=== PATIENT | female | born 1995 | race African-American/Black ===

== ENCOUNTER 2017-07-14 15:58 | Emergency (ER) | payer SELFPAY ==
[2017-07-14 16:23] VITALS: BP 138/77; PULSE 81; TEMP 98.4; BMI 29.2
--- NOTE | 2017-07-14 16:26 | PDOC ---
History of Present Illness - General Chief Complaint: Urinary Problem Stated Complaint: POSSIBLE UTI Time Seen by Provider: 07/14/17 16:24 History Source: Patient Exam Limitations: No Limitations - History of Present Illness Travel History: No Initial Comments: 07/14/17 16:48 Patient states has had pain and burning with her urine for 3 days. Has suffered from UTIs in the past but not for the past few years. Denies fever, denies nausea vomiting or diarrhea. Denies any bleeding from void Timing/Duration: reports: getting worse Quality: reports: mild, fullness Pain Radiation: reports: no radiation Activities at Onset: reports: none Past History - Travel Traveled outside of the country in the last 30 days: No Close contact w/someone who was outside of country & ill: No - Past Medical History Allergies/Adverse Reactions: Allergies Allergy/AdvReac Type Severity Reaction Status Date / Time No Known Allergies Allergy Verified 07/14/17 16:23 Home Medications: Ambulatory Orders Sulfamethoxazole/Trimethoprim [Bactrim *Ds*] 1 each PO BID #14 tablet 07/14/17 COPD: No - Suicide/Smoking/Psychosocial Hx Smoking History: Never smoked Review of Systems - Review of Systems Able to Perform ROS?: Yes Is the patient limited [place] proficient: Yes Constitutional: Yes: Symptoms Reported, See HPI, Malaise. No: Chills, Fever HEENTM: Yes: See HPI. No: Symptoms Reported Respiratory: Yes: See HPI. No: Symptoms reported, Cough ABD/GI: Yes: See HPI. No: Symptoms Reported, Nausea : Yes: Symptoms Reported, See HPI, Burning, Frequency, Urgency. No: Hematuria All Other Systems: Reviewed and Negative *Physical Exam - Vital Signs Last Vital Signs Temp Pulse Resp BP Pulse Ox 98.4 F 81 20 138/77 99 07/14/17 16:21 07/14/17 16:21 07/14/17 16:21 07/14/17 16:21 07/14/17 16:21 - Physical Exam General Appearance: Yes: Nourished, Appropriately Dressed. No: Apparent Distress HEENT: positive: JOHN, Normal ENT Inspection, TMs Normal, Pharynx Normal Neck: positive: Supple. negative: Tender Respiratory/Chest: positive: Lungs Clear Gastrointestinal/Abdominal: negative: Normal Bowel Sounds, Guarding, Rebound Integumentary: positive: Normal Color, Dry, Warm Neurologic: positive: gas furnace installer II-XII NML intact, Fully Oriented, Alert, Normal Mood/ Affect, Normal Response, Motor Strength 5/5 Progress Note - Progress Note Progress Note: Urinary tract infection, we'll treat with Bactrim as patient has no insurance and has not had urinary tract infection for many years. *DC/Admit/Observation/Transfer Diagnosis at time of Disposition: Urinary tract infection Qualifiers: Urinary tract infection type: acute cystitis Hematuria presence: without hematuria Qualified Code(s): N30.00 - Acute cystitis without hematuria - Discharge Dispostion Disposition: HOME Condition at time of disposition: Stable Admit: No - Prescriptions Prescriptions: Sulfamethoxazole/Trimethoprim [Bactrim *Ds*] 1 each PO BID #14 tablet - Referrals - Patient Instructions Printed Discharge Instructions: DI for Urinary Tract Infection (UTI) Additional Instructions: Rest, drink lots of fluids: Teas, water, soups Avoid contact with others until fevers and symptoms resolved Lots of handwashing and good hygiene Continue [id number] medications for symptomatic relief Tylenol or Motrin for fever and pain Continue all of antibiotics until completed Followup with private physician in one week for repeat urinalysis/reevaluation Return to emergency department for worsened symptoms, fevers, dehydration - Post Discharge Activity Forms/Work/School Notes: Back to Work
[2017-07-14 17:04] LABS: HCG,QUALITATIVE URINE NEGATIVE; URINE APPEARANCE SLCLOUDY; URINE BILIRUBIN NEGATIVE (NEGATIVE); URINE BLOOD 1+ (NEGATIVE); URINE COLOR YELLOW; URINE GLUCOSE (UA) NEGATIVE (NEGATIVE); URINE KETONE NEGATIVE (NEGATIVE); URINE NITRITE NEGATIVE (NEGATIVE); URINE PROTEIN NEGATIVE (NEGATIVE); URINE UROBILINOGEN NEGATIVE mg/dL (0.2-1.0)
[2017-07-14 17:05] LABS: URINE LEUK ESTERASE 1+ (NEGATIVE)
[2017-07-14] MEDS ORDERED: SULFAMETHOXAZOLE/TRIMETHOPRIM 800MG/160MG D.S. TABLET PO ONE (17:13)
[2017-07-14 17:16] LABS: EPI CELLS FEW /HPF (FEW); URINE BACTERIA RARE /hpf (NONE SEEN); URINE MUCUS RARE
[2017-07-14] MEDS ORDERED: SULFAMETHOXAZOLE/TRIMETHOPRIM 800MG/160MG D.S. TABLET ONE (17:20)
--- NOTE | 2017-07-17 09:27 | PDOC ---
Patient Follow-up (Call Back) - Post ED Follow - Up Condition at time of discharge: Stable Disposition at time of original discharge: HOME Reason for Call Back: Abnwl. Microbiology (Patient with positive urine culture was started on Bactrim, awaiting sensitivity)
== END 2017-07-14 17:23 | disposition home or self-care (01) ==
LOC: JERFT 15:58
DX: N30.00 Acute cystitis without hematuria (principal)
CPT/HCPCS: 81003; 81015; 84703; 87086; 87186; 99281-25

== ENCOUNTER 2018-11-29 20:21 | Emergency (ER) | payer SELFPAY, BC | END 2018-11-29 21:53 | disposition home or self-care (01) | LOC: JERFT 20:21 ==

== ENCOUNTER 2020-06-04 12:27 | Emergency (ER) | payer SELFPAY ==
[2020-06-04 12:32] VITALS: BP 158/77; PULSE 59; TEMP 98.4; BMI 23.8
[2020-06-04] MEDS ORDERED: IBUPROFEN 400 MG TABLET (FP) PO ONE ×2 (13:57→14:43)
== END 2020-06-04 17:46 | disposition home or self-care (01) ==
LOC: JERFT 12:27
DX: R22.1 Localized swelling, mass and lump, neck (principal); N76.0 Acute vaginitis
CPT/HCPCS: 70491-TC; 84703; 99285-25

== ENCOUNTER 2021-04-30 17:01 | Emergency (ER) | payer BC ==
[2021-04-30 17:09] VITALS: BP 137/87; PULSE 57; TEMP 97; BMI 24.0
[2021-04-30] MEDS ORDERED: metroNIDAZOLE 250 MG TABLET PO ONE (19:45)
[2021-04-30] MEDS ORDERED: metroNIDAZOLE 250 MG TABLET ONE (20:11)
== END 2021-04-30 23:09 | disposition home or self-care (01) ==
LOC: JERFT 17:01 → JER 17:01 → JERFT 23:09
DX: N76.0 Acute vaginitis (principal)
CPT/HCPCS: 36415; 84703; 87086; 87491; 87591; 87661; 99283-25

== ENCOUNTER 2021-11-23 22:18 | Emergency (ER) | payer BC ==
[2021-11-23 22:22] VITALS: BP 137/83; PULSE 68; TEMP 98.2; BMI 24.0
[2021-11-23 23:30] LABS: PH,URINE 6.5 (5.0-8.0); URINE APPEARANCE CLEAR; URINE BILIRUBIN NEGATIVE (NEGATIVE); URINE COLOR YELLOW; URINE GLUCOSE (UA) NEGATIVE (NEGATIVE); URINE KETONE TRACE (NEGATIVE); URINE LEUK ESTERASE NEGATIVE (NEGATIVE); URINE NITRITE NEGATIVE (NEGATIVE); URINE PROTEIN TRACE (NEGATIVE)
== END 2021-11-23 23:40 | disposition home or self-care (01) ==
LOC: JERFT 22:18
DX: N76.0 Acute vaginitis (principal)
CPT/HCPCS: 36415; 81003; 84703; 87086; 87491; 87591; 87661; 99283-25

== ENCOUNTER 2023-04-30 21:43 | Emergency (ER) | payer BC ==
[2023-04-30 21:47] VITALS: BP 132/85; PULSE 85; RESP 18; TEMP 98.7; BMI 22.3
[2023-05-01] MEDS ORDERED: LIDOCAINE HCL 2% JELLY 11 ML TP ONE (00:56)
[2023-05-01] MEDS ORDERED: LIDOCAINE HCL 1%, 10 MG/ML (20ML VIAL) ONE (01:46)
[2023-05-01 02:08] LABS: EPI CELLS >36 /uL (0-25.1); HYALINE CASTS 0 /uL (0-3.1); PH,URINE 6.5 (5.0-8.0); URINE APPEARANCE CLEAR; URINE BACTERIA 1500 /uL (0-1359); URINE BILIRUBIN NEGATIVE (NEGATIVE); URINE COLOR YELLOW; URINE GLUCOSE (UA) NEGATIVE (NEGATIVE); URINE KETONE NEGATIVE (NEGATIVE); URINE LEUK ESTERASE 2+ (NEGATIVE); URINE NITRITE NEGATIVE (NEGATIVE); URINE PROTEIN NEGATIVE (NEGATIVE); URINE RBC 9 /uL (0-23.9); URINE WBC 135 /uL (0-25.8)
== END 2023-05-01 03:00 | disposition home or self-care (01) ==
LOC: JERFT 21:43
DX: R10.2 Pelvic and perineal pain (principal); N76.0 Acute vaginitis; N89.8 Other specified noninflammatory disorders of vagina
CPT/HCPCS: 36415; 81003; 84703; 87086; 87491; 87591; 87661; 99284-25